=== PATIENT | female | born 1950 | race Caucasian/White ===

== ENCOUNTER 2019-07-01 09:43 | Emergency (ER) | payer OTHER ==
[~2019-07-01] VITALS: Ht 162.6 cm; Wt 57.6 kg
[2019-07-01 10:05] VITALS: BP 129/65; Ht 162.6 cm; Wt 57.6 kg
== END 2019-07-01 11:29 | disposition left against medical advice (07) ==
LOC: ED 09:43
DX: Z53.21 Procedure and treatment not carried out due to patient leaving prior to being seen by health care provider (principal)

== ENCOUNTER → 2019-12-01 | Day surgery (SDC) | payer OTHER ==
[~2019-12-01] VITALS: Ht 165.1 cm; Wt 54.0 kg
[2019-12-01 09:39] VITALS: BP 104/69
[2019-12-01 14:56] VITALS: BP 115/53
== END | disposition home or self-care (01) ==
LOC: DS 08:53 → GI 11:00 → OR 11:00
PROVIDERS: ATTEND Surgery
DX: K59.00 Constipation, unspecified (principal); Z11.59 Encounter for screening for other viral diseases
CPT/HCPCS: 43235; 45378; J1200; J1610; J2250; J2310; J3010; J3490; U0003-CS